=== PATIENT | female | born 1950 | race Caucasian/White ===

== ENCOUNTER → 2019-07-27 | Outpatient (CLI) | payer MEDICARE | END | disposition home or self-care (01) | LOC: RAH 08:51 | PROVIDERS: ATTEND Internal Medicine Cardiovascular Disease | DX: R91.1 Solitary pulmonary nodule (principal); J98.11 Atelectasis; M47.814 Spondylosis without myelopathy or radiculopathy, thoracic region | CPT/HCPCS: 71250 ==

== ENCOUNTER → 2023-01-01 | Outpatient (CLI) | payer MEDICARE | END | disposition home or self-care (01) | LOC: SHCH 07:46 | PROVIDERS: ATTEND Internal Medicine Cardiovascular Disease | DX: I87.2 Venous insufficiency (chronic) (peripheral) (principal); I70.203 Unspecified atherosclerosis of native arteries of extremities, bilateral legs; I65.23 Occlusion and stenosis of bilateral carotid arteries | CPT/HCPCS: 93880; 93925; 93970 ==

== ENCOUNTER → 2023-09-03 | Outpatient (CLI) | payer MEDICARE | END | disposition home or self-care (01) | LOC: SHCH 07:35 | PROVIDERS: ATTEND Internal Medicine Cardiovascular Disease | DX: I25.10 Atherosclerotic heart disease of native coronary artery without angina pectoris (principal) | CPT/HCPCS: 93306 ==

== ENCOUNTER → 2023-09-05 | Outpatient (CLI) | payer MEDICARE ==
[2023-09-05] MEDS: REGADENOSON 0.4 MG/5 ML PF SYG IVP ONE (11:42)
== END | disposition home or self-care (01) ==
LOC: SHCH 08:29
PROVIDERS: ATTEND Internal Medicine Cardiovascular Disease
DX: I25.10 Atherosclerotic heart disease of native coronary artery without angina pectoris (principal)
CPT/HCPCS: 78452; 96374; 93017; J2785; A9500 ×2

== ENCOUNTER → 2023-09-11 | Outpatient (CLI) | payer MEDICARE ==
[2023-09-11 16:31] LABS: BASOPHILS # (AUTO) 0.09 K/uL (0.00-0.20); EOSINOPHILS # (AUTO) 0.69 K/uL (0.00-0.70); EOSINOPHILS % (AUTO) 7.9 % (0.0-8.0); HEMATOCRIT 53.1 % (36-48); IMMATURE GRANULOCYTE ABSOLUTE 0.03 K/uL (0-1); LYMPHOCYTES # (AUTO) 1.8 K/uL (1.0-4.8); LYMPHOCYTES % (AUTO) 20.5 % (21.0-51.0); MEAN CORPUSCULAR HEMOGLOBIN 30.9 pg (27.0-33.0); MEAN CORPUSCULAR HGB CONC 31.3 g/dL (32.0-36.0); MEAN CORPUSCULAR VOLUME 98.7 fL (79-99); MONOCYTES # (AUTO) 0.7 K/uL (0.1-1.0); MONOCYTES % (AUTO) 8.5 % (3.0-13.0); NEUTROPHILS # (AUTO) 5.4 K/uL (1.8-7.7); NEUTROPHILS % (AUTO) 61.8 % (40.0-77.0); PLATELET COUNT (AUTO) 206 K/uL (130-400); RED BLOOD CELL COUNT(AUTO) 5.38 MIL/uL (4.00-5.50); RED CELL DISTRIBUTION WIDTH 14.5 % (11.0-15.5); WHITE BLOOD COUNT (AUTO) 8.7 K/uL (4.8-10.8)
[2023-09-11 16:36] LABS: CREATININE 0.9 mg/dL (0.5-1.0); POTASSIUM 4.8 mmol/L (3.5-5.1)
[2023-09-11 16:41] LABS: INR <= 0.93 (0.85-1.15); PROTHROMBIN TIME 10.5 SEC (9.6-11.6)
== END | disposition home or self-care (01) ==
LOC: LAB 11:33
PROVIDERS: ATTEND Internal Medicine Cardiovascular Disease
DX: Z01.812 Encounter for preprocedural laboratory examination (principal); I87.2 Venous insufficiency (chronic) (peripheral); I87.1 Compression of vein; I11.9 Hypertensive heart disease without heart failure; I25.10 Atherosclerotic heart disease of native coronary artery without angina pectoris; R06.02 Shortness of breath; I73.9 Peripheral vascular disease, unspecified; Z79.899 Other long term (current) drug therapy
CPT/HCPCS: 36415; 80048; 85025; 85610; 85730

== ENCOUNTER → 2024-06-30 | Outpatient (CLI) | payer MEDICARE ==
--- NOTE | 2024-07-01 08:47 | HMCSR ---
APPROVED REPORT Bilateral Lower Extremity Venous Study for DVT., Venous Competence. Indications i87.72, i87.1 Vein Imaging CFV (R): Normal flow, augmentation and compression. No evidence of DVT. 9.1mm 1061ms SFJ (R): Normal flow, augmentation and compression. No evidence of DVT. FEM (R): Normal flow, augmentation and compression. No evidence of DVT. POP (R): Normal flow, augmentation and compression. No evidence of DVT. DFV (R): Normal flow, augmentation and compression. No evidence of DVT. PTV (R): Normal flow, augmentation and compression. No evidence of DVT. Peroneals (R): Normal flow, augmentation and compression. No evidence of DVT. CFV (L): Normal flow, augmentation and compression. No evidence of DVT. 9.5mm 2425ms SFJ (L): Normal flow, augmentation and compression. No evidence of DVT. FEM (L): Normal flow, augmentation and compression. No evidence of DVT. POP (L): Normal flow, augmentation and compression. No evidence of DVT. DFV (L): Normal flow, augmentation and compression. No evidence of DVT. PTV (L): Normal flow, augmentation and compression. No evidence of DVT. Peroneals (L): Normal flow, augmentation and compression. No evidence of DVT. Technologist Impression Deep veins of bilateral lower extrimity appear patent and compressible without evidence of thrombus. Deep venous reflux noted in RCFV and LCFV. No evidence of superficial venous reflux. RGSV Junction 2.6mm 0.0ms Thigh 1.7mm 0.0ms Knee 0.9mm 0.0ms Calf 1.5mm 0.0ms RSSV Prox 2.7mm 300ms Mid 1.8 mm 0.00ms LGSV Junction 3.5 0.0ms Thigh 2.2mm 0.0ms Knee 2.1mm 0.0ms Calf 1.5mm 0.0ms LSSV Prox 1.2 mm 0.0ms Mid 1.3 mm 317ms Conclusion Severe deep venous reflux noted of bilateral common femoral veins Consider iliac vein compression Clinical correlation recommended Conclusion Severe deep venous reflux noted of bilateral common femoral veins Consider iliac vein compression Clinical correlation recommended
== END | disposition home or self-care (01) ==
LOC: SHCH 09:42
PROVIDERS: ATTEND Internal Medicine Cardiovascular Disease
DX: I87.2 Venous insufficiency (chronic) (peripheral) (principal); I87.1 Compression of vein
CPT/HCPCS: 93970

== ENCOUNTER → 2025-04-28 | Outpatient (CLI) | payer MEDICARE ==
[~2025-04-28] MED LIST: IOHEXOL 350 MG/ML 100ML INFUS..BTL IV ONE
--- NOTE | 2025-04-29 13:43 | HMCIMG ---
EXAM: CTA Abdomen and Pelvis with and without Intravenous Contrast. CLINICAL HISTORY: Abdominal aortic aneurysm, without rupture, unspecified TECHNIQUE: Axial CTA images of the abdomen and pelvis with and without intravenous contrast in the arterial phase with coronal and sagittal reformatted images generated and reviewed. 3-D reformatted images generated on an independent workstation and also reviewed. CONTRAST: 100 mL of Omnipaque 350 was injected intravenously without incident. COMPARISON: None provided. FINDINGS: VASCULATURE: Aorta: Atherocalcific plaques cause narrowing up to 20%-30%. Small infrarenal abdominal aortic aneurysm (3.1 cm), consider follow-up. No dissection. Celiac trunk: No acute finding. No occlusion or significant stenosis. Splenic artery: Atherocalcific changes in the distal splenic artery. No occlusion or significant stenosis. Superior mesenteric artery: Mild atherocalcific changes. No acute finding. No occlusion or significant stenosis. Inferior mesenteric artery: No acute finding. No occlusion or significant stenosis. Renal arteries: Mild atherocalcific changes in the left renal artery. No acute finding. No occlusion or significant stenosis. Iliac arteries: Atherocalcific changes with up to 50% luminal narrowing in the left external iliac artery. No acute finding. No occlusion or significant stenosis. Lower thorax: No basilar airspace consolidation. ABDOMEN: Liver: Unremarkable. No mass. Gallbladder and bile ducts: No calcified stone. No ductal dilation. Pancreas: Unremarkable. No ductal dilation. Spleen: Unremarkable. Adrenals: No mass. Kidneys and ureters: Multiple well-defined hypodense areas in the right kidney largest measuring 4.5 x 3.8 cm in the mid-pole. These may reflect simple cysts; however would be better characterized with ultrasound on a non-emergent basis. The kidneys enhance symmetrically. No hydronephrosis. Stomach and bowel: No obstruction. No bowel wall thickening. No CT evidence of acute diverticulitis. Appendix: The appendix is within normal limits. PELVIS: Bladder: Unremarkable. Reproductive: Unremarkable as visualized. Peritoneum: No free fluid. No free air. Lymph nodes: No lymphadenopathy is evident. Bones: No acute osseous abnormality. Multilevel degenerative changes in the visualized spine. Other findings: Stents in the bilateral external iliac veins are in place. IMPRESSION: 1. Small infrarenal abdominal aortic aneurysm (3.1 cm). No abdominal aortic dissection. 2. Atherocalcific changes in multiple vessels, most significant in left external iliac artery with up to 50% luminal narrowing. 3. No acute findings. 4. Bilateral renal cysts. A follow-up ultrasound is recommended. /[place]
== END | disposition home or self-care (01) ==
LOC: RAH 09:23
PROVIDERS: ATTEND Internal Medicine Cardiovascular Disease
DX: I71.43 Infrarenal abdominal aortic aneurysm, without rupture (principal); I71.40 Abdominal aortic aneurysm, without rupture, unspecified; N28.1 Cyst of kidney, acquired; M47.817 Spondylosis without myelopathy or radiculopathy, lumbosacral region; I70.1 Atherosclerosis of renal artery
CPT/HCPCS: 74174; Q9967